=== PATIENT | female | born 1970 | race Caucasian/White ===

== ENCOUNTER → 2017-03-15 13:08 | Outpatient (CLI) | payer BC ==
[2013-04-06 07:45] VITALS: BMI 20.9
== END | disposition home or self-care (01) ==
LOC: D.MAMMO 01-14 09:00
DX: Z12.31 Encounter for screening mammogram for malignant neoplasm of breast (principal)

== ENCOUNTER → 2018-03-21 18:25 | Outpatient (CLI) | payer BC ==
[2013-04-06 07:45] VITALS: BMI 20.9
== END | disposition home or self-care (01) ==
LOC: D.MAMMO 09:30
DX: Z12.31 Encounter for screening mammogram for malignant neoplasm of breast (principal)

== ENCOUNTER → 2019-06-03 13:00 | Outpatient (CLI) | payer BC ==
[2013-04-06 07:45] VITALS: BMI 20.9
== END | disposition home or self-care (01) ==
LOC: D.MAMMO 04-21 16:00
PROVIDERS: ATTEND Family Medicine
DX: Z12.31 Encounter for screening mammogram for malignant neoplasm of breast (principal)

== ENCOUNTER → 2020-08-12 20:43 | Outpatient (CLI) | payer BC ==
[2013-04-06 07:45] VITALS: BMI 20.9
== END | disposition home or self-care (01) ==
LOC: D.MAMMO 11:00
PROVIDERS: ATTEND Family Medicine
DX: Z12.31 Encounter for screening mammogram for malignant neoplasm of breast (principal)